=== PATIENT | male | born 1985 | race American Indian/Alaskan Native ===

== ENCOUNTER 2019-02-07 08:47 | Emergency (ER) | payer BC ==
[2019-02-07 08:54] VITALS: BP 140/91; PULSE 81; TEMP 98.4; O2SAT 100
[2019-02-07 08:55] VITALS: BMI 47.5
--- NOTE | 2019-02-07 09:20 | ED PDOC ---
Arrival/HPI - General Chief Complaint: Finger,Hand,&Wrist Time Seen by Provider: 02/07/19 09:00 Historian: Patient - History of Present Illness Narrative History of Present Illness (Text): 02/07/19 09:00 Patient is a 33 year old male, who denies hx of gout or DVT, who presents to the emergency department complaining of right wrist pain and swelling since today. Pt informs playing basketball with his children and tug-of-war with his dog yesterday with no complaints. Patient also appreciates mild swelling to right upper extremity. Patient denies trauma to right upper extremity, fall, paresthesias, focal weakness, sensory deficits, or any other complaints. Denies hx of DM or IVDA Time/Duration: 4-6 hours Symptom Onset: Gradual Activities at Onset: Light Context: Home Past Medical History - Provider Review Nursing Documentation Reviewed: Yes - Infectious Disease Hx of Infectious Diseases: None - Past Medical History Past Medical History: No Previous - Cardiac Hx Cardiac Disorders: No - Pulmonary Hx Respiratory Disorders: No - Neurological Hx Neurological Disorder: No - HEENT Hx HEENT Disorder: No - Renal Hx Renal Disorder: No - Hematological/Oncological Hx Blood Disorders: No - Integumentary Hx Dermatological Disorder: No - Musculoskeletal/Rheumatological Hx Musculoskeletal Disorders: No - Gastrointestinal Hx Gastrointestinal Disorders: No - Genitourinary/Gynecological Hx Genitourinary Disorders: No - Psychiatric Hx Psychophysiologic Disorder: No Hx Depression: No Hx Emotional Abuse: No Hx Physical Abuse: No Hx Substance Use: No - Past Surgical History Past Surgical History: No Previous - Suicidal Assessment Feels Threatened In Home Enviroment: No Family/Social History - Physician Review Nursing Documentation Reviewed: Yes Family/Social History: Unknown Family HX Smoking Status: Unknown If Ever Smoked Hx Alcohol Use: No Hx Substance Use: No Allergies/Home Meds Allergies/Adverse Reactions: Allergies No Known Allergies Allergy (Verified 02/07/19 08:55) Home Medications: Home Meds Medication Instructions Recorded Confirmed No Known Home Med 02/07/19 02/07/19 Review of Systems - Review of Systems Constitutional: absent: Fevers Eyes: absent: Vision Changes Respiratory: absent: SOB, Cough Cardiovascular: absent: Chest Pain Gastrointestinal: absent: Abdominal Pain, Diarrhea, Nausea, Vomiting Genitourinary Male: absent: Dysuria, Hematuria Musculoskeletal: Joint Swelling, Myalgias (right wrist pain). absent: Other (no fall, trauma to right upper extremity) Skin: absent: Rash, Skin Lesions, Laceration Neurological: absent: Focal Weakness, Other (no sensory deficits, paresthesias) Endocrine: absent: Diaphoresis Physical Exam Vital Signs Reviewed: Yes Vital Signs Temp Pulse Resp BP Pulse Ox 02/07/19 08:54 98.4 F 81 19 140/91 H 100 Temperature: Afebrile Blood Pressure: Normal Pulse: Regular Respiratory Rate: Normal Appearance: Positive for: Well-Appearing, Non-Toxic, Comfortable Pain Distress: None Mental Status: Positive for: Alert and Oriented X 3 - Systems Exam Head: Present: Atraumatic, Normocephalic Pupils: Present: PERRL Extroacular Muscles: Present: EOMI Upper Extremity: Present: Normal ROM, NORMAL PULSES (distal pulses intact), Neurovascularly Intact, Other (Right wrist pain worsened with extension. No numbness or tingling. no warmth or erythema. Mild right arm swelling when compared to left. No pain to right elbow or right hand. ). No: Cyanosis, Edema, Erythema, Deformity Neurological: Present: GCS=15, CN II-XII Intact, Motor Func Grossly Intact, Normal Sensory Function, Gait Normal Medical Decision Making ED Course and Treatment: 02/07/19 09:00 Impression: Patient is a 33 year old male who denies history of gout or DVT, who presents to the emergency department complaining of right wrist pain and swelling. Right wrist pain is worsened with extension, mild swelling to arm when compared with left upper extremity. No pain at elbow or hand. Plan: -- US Duplex Upper Extremities -- Right Wrist X-Ray 3V -- Toradol -- Reassess and disposition Prior Visits: Notes and results from previous visits were reviewed. Progress Notes: 02/07/19 10:59 DVT study negative. Xray negative as read by me. 02/07/19 11:20 Wrist X-Ray shows: IMPRESSION: No acute displaced fracture or dislocation. Placed in deepti wrap and given ortho follow-up - RAD Interpretation Radiology Orders: 02/07/19 09:05 WRIST, RIGHT 3 VIEWS [RAD] Stat 02/07/19 09:09 DUPLEX LOWER EXTRM VEIN RIGHT [US] Stat [employer] Operator: ED Physician, Radiologist - Medication Orders Current Medication Orders: Discontinued Medications Ketorolac Tromethamine (Toradol) 60 mg IM STAT STA Stop: 02/07/19 09:10 - Scribe Statement The provider has reviewed the documentation as recorded by the Scribe Stanton Seymour All medical record entries made by the Scribe were at my direction and personally dictated by me. I have reviewed the chart and agree that the record accurately reflects my personal performance of the history, physical exam, medical decision making, and the department course for this patient. I have also personally directed, reviewed, and agree with the discharge instructions and disposition. Disposition/Present on Arrival - Present on Arrival Any Indicators Present on Arrival: No History of DVT/PE: No History of Uncontrolled Diabetes: No Urinary Catheter: No History of Decub. Ulcer: No History Surgical Site Infection Following: None - Disposition Have Diagnosis and Disposition been Completed?: Yes Diagnosis: Wrist sprain Disposition: HOME/ ROUTINE Disposition Time: 11:00 Patient Plan: Discharge Patient Problems: Current Active Problems Problem Status Onset Wrist sprain Acute Condition: GOOD Discharge Instructions (ExitCare): Wrist Sprain (DC), Common Wrist Injuries Additional Instructions: Follow-up with PMD within 2 days. Motrin for pain. Follow-up with orthopedics if persistent pain Referrals: Francesco Hendrix MD [Primary Care Provider] - Follow up with primary Chandan Jasmine MD [Staff Provider] - Follow up with primary Forms: [facility] [facility] ([place]), WORK NOTE
--- NOTE | 2019-02-07 11:24 | RAD ---
Date of service: 02/07/2019 PROCEDURE: Right Wrist Radiographs. HISTORY: R wrist pain COMPARISON: None. TECHNIQUE: 3 views obtained. FINDINGS: BONES: Bone alignment and mineralization are normal. There is no acute displaced fracture or bone destruction. JOINTS: Normal. No dislocation. SOFT TISSUES: Normal. OTHER FINDINGS: None. IMPRESSION: No acute displaced fracture or dislocation.
[2019-02-07 11:45] VITALS: RESP 16
--- NOTE | 2019-02-07 12:15 | US ---
PROCEDURE: Right upper extremity venous US CLINICAL HISTORY: Arm pain and swelling Evaluate for deep venous thrombosis. PHYSICIAN(S): Ramón Catherine M.D FINDINGS: The visualized rightinternal jugular vein is sonographically normal and compressible. No evidence of obstruction or thrombus is seen. The visualized segments of the right subclavian vein are patent with normal waveforms. No sonographic evidence of obstruction or thrombosis is seen. The visualized deep venous system of the proximal right upper extremity is sonographically normal and compressible. IMPRESSION: 1. No sonographic evidence for deep venous thrombosis in the visualized segments of the right upper extremity.
== END 2019-02-07 11:20 | disposition home or self-care (01) ==
LOC: ED 08:47
DX: S63.501A Unspecified sprain of right wrist, initial encounter (principal); Y93.67 Activity, basketball
CPT/HCPCS: 73110; 93971; 96372; 99283; J1885